=== PATIENT | male | born 1995 | race Caucasian/White ===

== ENCOUNTER 2021-06-11 11:05 | Emergency (ER) | payer MEDICAID ==
[~2021-06-11] VITALS: Ht 177.8 cm; Wt 107.0 kg
[2021-06-11 11:13] VITALS: BP_SYST 131
[2021-06-11] MEDS ORDERED: cephALEXin 500 MG CAPSULE PO ONE (12:15)
[2021-06-11] MEDS ORDERED: ACETAMINOPHEN 500 MG TABLET PO ONE (12:15)
[2021-06-11] MEDS ORDERED: BACITRACIN 1 GM OINT TP ONE (12:15)
[2021-06-11] MEDS ORDERED: DIPH-TET-PERTUS Vaccine 0.5 ML VIAL (ADACEL) I.M. ONE (12:30)
[2021-06-11] MEDS ORDERED: CEPH-548 PO (12:33)
[2021-06-11] MEDS ORDERED: BACI15OI13 TP (12:33)
[2021-06-11] MEDS ORDERED: ACET325T53 PO (12:33)
[2021-06-11 13:38] VITALS: BP_SYST 131
== END 2021-06-11 13:38 | disposition home or self-care (01) ==
LOC: SED 11:05
DX: S80.11XA Contusion of right lower leg, initial encounter (principal); Z79.899 Other long term (current) drug therapy; W18.39XA Other fall on same level, initial encounter; Y93.89 Activity, other specified; Y92.89 Other specified places as the place of occurrence of the external cause; Y99.8 Other external cause status
CPT/HCPCS: 73590-TC; 90715; 99283